=== PATIENT | female | born 2000 | race Caucasian/White ===

== ENCOUNTER 2018-01-05 18:41 | Emergency (ER) | payer BC, MEDICAID ==
--- NOTE | 2018-01-05 19:05 | EDM.PDOC ---
ED HPI GENERAL MEDICAL PROBLEM - General Chief Complaint: Gastrointestinal Problem Stated Complaint: SWALLOWED SHARP OBJECT Time Seen by Provider: 01/05/18 18:45 Source of Information: Reports: Patient History Limitations: Reports: No Limitations - History of Present Illness INITIAL COMMENTS - FREE TEXT/NARRATIVE: Evelina consumed some commercial snack bars early this afternoon and discovered small metalic debris present. She ate several bars, and discovered additional metalic debris in them as well. She is asx, and would like more information about status of ingestion and any potential risks. She is currently asx, enjoys good health, and is not . - Related Data Allergies Allergy/AdvReac Type Severity Reaction Status Date / Time nickel [Nickel] Allergy Rash Verified 01/05/18 18:49 Home Meds: Home Meds Amphetamine/Dextroamphetamine [Adderall XR] 20 mg PO DAILY 02/24/14 [History] Norelgestromin/Ethin.Estradiol [Xulane Patch] 1 patch TRDERM ASDIRECTED [History] Social & Family History - Alcohol Use Days Per Week of Alcohol Use: 0 - Recreational Drug Use Recreational Drug Use: No ED ROS GENERAL - Review of Systems Review Of Systems: ROS reveals no pertinent complaints other than HPI. ED EXAM, GI/ABD - Physical Exam Exam: See Below Exam Limited By: No Limitations General Appearance: Alert, WD/WN, No Apparent Distress, Anxious Throat/Mouth: Normal Inspection, Normal Oropharynx Head: Normocephalic Neck: Normal Inspection, Supple, Non-Tender Respiratory/Chest: Lungs Clear, Chest Non-Tender Cardiovascular: Regular Rate, Rhythm, No Murmur GI/Abdominal Exam: Normal Bowel Sounds, Soft, Non-Tender, No Organomegaly, No Distention, No Mass (Female) Exam: Deferred Rectal (Female) Exam: Deferred Back Exam: Normal Inspection Extremities: Normal Inspection Neurological: Alert, Oriented, CN II-XII Intact, Normal Cognition, Normal Gait, No Motor/Sensory Deficits Psychiatric: Normal Affect, Anxious Skin Exam: Warm, Dry, Intact, Normal Color Lymphatic: No Adenopathy Course - Vital Signs Text/Narrative:: A KUB reveals no metalic debris within the stomach, small bowel or large bowel at this time. Last Recorded V/S: Last Vital Signs Temp 36.6 C 01/05/18 18:51 Pulse 82 01/05/18 18:51 Resp 14 01/05/18 18:51 BP 108/56 L 01/05/18 18:51 Pulse Ox 98 01/05/18 18:51 - Orders/Labs/Meds Orders: Active Orders 24 hr Category Date Time Status Abdomen 1V Flat [CR] Stat Exams 01/05/18 19:00 Ordered Departure - Departure Time of Disposition: 19:19 Disposition: Home, Self-Care 01 Condition: Good Clinical Impression: Foreign body in digestive system, unspecified Qualifiers: Encounter type: initial encounter Qualified Code(s): T18.9XXA - Foreign body of alimentary tract, part unspecified, initial encounter - Discharge Information Referrals: Eliazar Levine MD [Primary Care Provider] - Forms: ED Department Discharge - Problem List & Annotations (1) Foreign body in digestive system, unspecified SNOMED Code(s): 74617219 Code(s): T18.9XXA - FOREIGN BODY OF ALIMENTARY TRACT, PART UNSP, INIT ENCNTR Status: Acute Annotation/Comment:: No fb detected on diagnostic imaging. Reassurance given. Qualifiers: Encounter type: initial encounter Qualified Code(s): T18.9XXA - Foreign body of alimentary tract, part unspecified, initial encounter - Problem List Review Problem List Initiated/Reviewed/Updated: Yes - My Orders Last 24 Hours: My Active Orders 01/05/18 19:00 Abdomen 1V Flat [CR] Stat - Assessment/Plan Last 24 Hours: My Active Orders 01/05/18 19:00 Abdomen 1V Flat [CR] Stat Plan: Follow up with PCP if needed.
--- NOTE | 2018-01-06 10:56 | CR ---
INDICATION: Ingested metallic foreign bodies in food, question jazmine. The patient ate 4 cookies with what she said were staple-like objects. ABDOMEN: Two supine views of the abdomen were obtained. There is an artifact that is metallic in appearance at the upper portion of the abdomen on the long view of the abdomen, obtained at 1910 hours. This has been proven to be an artifact. No radiopaque foreign bodies - no metallic foreign bodies were identified. The pattern of gas and feces is nonspecific. Bony structures appear to be grossly intact. A very slight tilt of the spine may be positional. IMPRESSION: No radiopaque foreign bodies identified. There is noted an artifact which was proven to be artifactual in the area of the right upper quadrant overlying the liver. MTDD
== END 2018-01-05 19:26 | disposition home or self-care (01) ==
LOC: FB.ED 18:41
DX: T18.9XXA Foreign body of alimentary tract, part unspecified, initial encounter (principal); Z79.899 Other long term (current) drug therapy; Z91.09 Other allergy status, other than to drugs and biological substances
CPT/HCPCS: 74018; 99283

== ENCOUNTER 2018-02-10 21:38 | Emergency (ER) | payer BC ==
[2018-02-11 01:32] LABS: ACETAMINOPHEN < 2 ug/mL (10-30)
--- NOTE | 2018-02-11 03:37 | ER ---
DATE SEEN: 02/10/2018 REASON FOR VISIT: Behavioral change. HISTORY OF PRESENT ILLNESS: This is a 17-year-old female brought in by the parents. The parents actually called Law Enforcement. They were talking and she threatened to commit suicide according to her to just have them shut up. However, it later emerged that she has not slept for over 6 days, has not been eating and has been acting "bipolar." She does have a history of ADHD, stable on Adderall, which she takes intermittently. She does not abuse drugs except marijuana. The parents both have a strong history of bipolar disease and illness, but she has never had an overt manic episode, but over the last few hours she has been argumentative, hyperactive and manic. REVIEW OF SYSTEMS: No chest pain, fever, or chills. All other systems are negative. SOCIAL HISTORY: She is dating a boyfriend and there is some issues going on. ALLERGIES: None except nickel. PHYSICAL EXAMINATION: VITAL SIGNS: Her blood pressure is normal. She is afebrile. ENT: Negative. CHEST: Clear. MENTAL STATUS: She is rambling and jumps from one topic to another almost nonstop, very tearful, anxious at times, changes from one spectrum to another exhibited signs suggestive of sajan and grandiosity. LABORATORY DATA: The only positive lab was urine drug screen that showed amphetamines and marijuana. FINAL IMPRESSION: Manic episode. PLAN: I consulted [facility], and the staff had recommended admission to psych hospital. We obtained a TSH, test and is currently in the process of making a transfer. The patient was very resistant to labs which were necessary as such, I did put on a hold and also recommended restraints 4-point, non- violence for lab draw and continuity of care. /[id number] AYLA/BENNY
== END 2018-02-11 04:13 ==
LOC: FB.ED 21:38
DX: F30.9 Manic episode, unspecified (principal); Z91.048 Other nonmedicinal substance allergy status
CPT/HCPCS: 36415; 80053; 80305; 81001; 81025; 84443; 85025; 99285; G0480

== ENCOUNTER 2018-03-01 00:15 | Emergency (ER) | payer BC ==
[2018-03-01] MEDS ORDERED: LORazepam 2 MG/ML SDV IM PRN (00:39)
[2018-03-01] MEDS ORDERED: LORazepam 2 MG/ML SDV ONE (00:40)
[2018-03-01 01:26] LABS: ACETAMINOPHEN < 2 ug/mL (10-30)
[2018-03-01] MEDS ORDERED: OLANZapine 10 MG Vial IM ONE (02:45)
[2018-03-01] MEDS ORDERED: Sodium Chloride 0.9% 1,000 ML IV SCH (02:45)
--- NOTE | 2018-03-01 05:22 | ER ---
DATE SEEN: 03/01/2018 REASON FOR VISIT: Psychosis. HISTORY OF PRESENT ILLNESS: This is a 17-year-old female brought in by the parents. In the last day or so, she has not been able to sleep. She has been extremely anxious and there was a ween that she might have taken meth. At home, she became angry, agitated, and was not making sense. She was shouting and hitting her head, at one point making threats to kill herself. Law Enforcement was called and brought her to the emergency room. Two weeks ago, she had a similar episode where she ended up at [facility] and discharged home after 2 days. She was put on Seroquel, which she has been taking. She also was given some hydroxyzine. REVIEW OF SYSTEMS: No fever has been reported. No urinary symptoms. SOCIAL HISTORY: Uses marijuana and possibly meth. Does not drink. PHYSICAL EXAMINATION: VITAL SIGNS: Her blood pressure is normal, pulse is 106, and temperature 98.0. HEAD: Normocephalic. EYES: Pupils are equal. CARDIOVASCULAR: Normal. MENTAL STATUS: She is hyperactive, agitated, and has an elated speech, did not make any sense. Thought process illogical and showed signs of sajan. FINAL IMPRESSION: Acute psychosis. PLAN: We put four-point restraints, started initially lorazepam 2 mg IM and then Zyprexa 10 mg IM. Lab showed a creatinine of 1.5. Fluids were initiated. A transfer was also initiated with a 72-hour hold and help from Abril. She will be sent to [place]. /[id number] AYLA/BENNY
== END 2018-03-01 04:55 ==
LOC: FB.ED 00:15
DX: F29 Unspecified psychosis not due to a substance or known physiological condition (principal)
CPT/HCPCS: 36415; 80053; 80305; 81001; 84443; 84702; 85025; 96360; 96372; 99285; G0480; J2060; J7030; S0166

== ENCOUNTER 2018-12-24 14:35 | Emergency (ER) | payer BC ==
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
[2018-12-29 09:13] LABS: CHLAMYDIA TRACHOMATIS, NAA Positive (Negative); NEISSERIA GONORRHOEAE, NAA Negative (Negative)
== END 2018-12-24 16:11 | disposition home or self-care (01) ==
LOC: FB.ED 14:35
DX: K62.5 Hemorrhage of anus and rectum (principal); F31.9 Bipolar disorder, unspecified; F41.9 Anxiety disorder, unspecified; F90.9 Attention-deficit hyperactivity disorder, unspecified type; F43.10 Post-traumatic stress disorder, unspecified; Z79.899 Other long term (current) drug therapy; Z91.09 Other allergy status, other than to drugs and biological substances
CPT/HCPCS: 36415; 80053; 81001; 81025; 85025; 87491; 87591; 99283

== ENCOUNTER 2020-01-28 23:31 | Emergency (ER) | payer BC ==
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
== END 2020-01-29 00:40 | disposition home or self-care (01) ==
LOC: FB.ED 23:31
DX: L03.115 Cellulitis of right lower limb (principal); F31.9 Bipolar disorder, unspecified; F41.0 Panic disorder [episodic paroxysmal anxiety]; Z91.048 Other nonmedicinal substance allergy status; Z79.899 Other long term (current) drug therapy; W54.8XXA Other contact with dog, initial encounter
CPT/HCPCS: 99283